=== PATIENT | male | born 1950 | race African-American/Black ===

== ENCOUNTER 2017-06-24 12:25 | Inpatient (IN) | payer MEDICARE, BC ==
[2017-06-24] VITALS (8 sets, daily range): BP systolic 168–195; BP diastolic 70–92; BMI 23.9; BMI 23.3
--- NOTE | ~2017-06-24 | HEMODYNAMI ---
PATIENT:SRIDHAR CONN MEDICAL RECORD: [id number] : 50 LOCATION:[facility] ADMISSION DATE: 06/24/17 Generatedon:06/24/201717:08 Patient name: SRIDHAR CONN Patient #: [id number] SSN: : Date of study: 06/24/2017 Page: Of Hemodynamic Procedure Report Patient Data Patient Demographics Procedure consent was obtained First Name: SRIDHAR Gender: Male Last Name: JANUARY : 1950 Middle Initial: RAYMON Age: 66 year(s) Patient #: [id number] Race: Black Additional ID: [id number] Contact details [address]: [address] [place], [place] [address] State: [place] City: [place] Zip code: [address] Admission Admission Data Admission Date: 06/24/2017 Admission Time: 12:25 Weight (lbs.): 176 Weight (kg.): 79.83 Procedure Procedure Types Cath Procedure Peripheral Cath Diagnostic Procedure Cath Peripheral 4-Vessel Subclavian Arteriogram Uni Procedure Description Procedure Date Procedure Date: 06/24/2017 Procedure Start Time: 16:09 Procedure Staff Name Function Julian Hicks MD Performing Physician Farzana Maciel RT Scrub Jessica Cooper RN Nurse Misha Suarez RT Machine Wiper Misha Suarez RT Monitor Procedure Data Cath Procedure Fluoroscopy Diagnostic fluoroscopy Total fluoroscopy Time: time: 13.1 min 13.1 min Diagnostic fluoroscopy Total fluoroscopy dose: 97 dose: 97 mGy mGy Contrast Material Contrast Material Type Amount (ml) Isovue 300 158 Entry Location Entry Primary Successful Side Size Upsize Upsize Entry Closure Succes sful Closure Location (Fr) 1 (Fr) 2 (Fr) Remarks Device Remarks Femoral Right 5 Fr Exoseal artery Diagnostic catheters Device Type Used For End Catheter Placement Merit ULTRA BOLUS FLUSH Cervicocerebral 5Fr 90CM catheter (arch) aortogram Cook HN5 5F/100CM catheter Procedure Medications Medication Administration Route Dosage Versed I.V. 1 mg Fentanyl I.V. 50 mcg Versed I.V. 1 mg Fentanyl I.V. 50 mcg Versed I.V. 1 mg Fentanyl I.V. 50 mcg Versed I.V. 1 mg Fentanyl I.V. 50 mcg Heparin Flush Bag added to field 23 bags (1000units/500ml NS) unlisted medication added to field 20 Hemodynamics Rest Heart Rate: 68 (bpm) Snapshots Pre Cath Intra NCS Post Cath Vital Signs Time Heart Resp SPO2 etCO2 NIBP (mmHg) Rhythm Pain Sedation Rate (ipm) (%) (mmHg) Status Level (bpm) 15:58:04 65 16 97 30.1 151/74(128) NSR 0 (11) 10(A) , No pain 16:02:24 66 16 96 33.1 148/79(127) NSR 0 (11) 10(A) , No pain 16:06:44 67 18 98 31.6 156/77(139) NSR 0 (11) 10(A) , No pain 16:11:02 70 15 98 34.6 165/87(139) NSR 0 (11) 10(A) , No pain 16:15:26 68 15 96 34.6 152/77(127) NSR 0 (11) 10(A) , No pain 16:19:49 64 64 95 0 162/72(142) NSR 0 (11) 10(A) , No pain 16:24:13 67 11 93 0 164/82(137) NSR 0 (11) 10(A) , No pain 16:28:35 70 12 92 26.3 167/89(140) NSR 0 (11) 10(A) , No pain 16:32:57 63 7 95 36.1 150/75(124) NSR 0 (11) 10(A) , No pain 16:37:20 62 7 95 9.7 130/73(116) NSR 0 (11) 10(A) , No pain 16:41:29 72 10 95 15.8 141/86(117) NSR 0 (11) 10(A) , No pain 16:45:41 68 13 97 30.8 148/91(104) NSR 0 (11) 10(A) , No pain 16:49:55 66 18 96 43.7 137/80(122) NSR 0 (11) 10(A) , No pain 16:54:11 64 10 96 0 154/76(125) NSR 0 (11) 10(A) , No pain 16:58:31 62 7 95 0 156/76(134) NSR 0 (11) 10(A) , No pain 17:02:51 61 10 97 39.9 161/80(130) NSR 0 (11) 10(A) , No pain 17:07:16 61 13 98 34.6 159/82(146) NSR 0 (11) 10(A) , No pain Medications Time Medication Route Dose Verified Delivered Reason Notes Eff ectiveness by by 15:28:22 Heparin Flush added 23bags Julian Jordan used for Bag to Fabiola Hicks MD procedure (1000units/500ml field MOONEY NS) 15:29:45 lidocaine added 20ml Julian Jordan for local to vial Fabiola Hicks MD anesthetic field 16:09:45 Versed I.V. 1 mg Julian Lopez for Kenneth Hicks RN sedation 16:09:57 Fentanyl I.V. 50 mcg Julian Lopez for Kenneth Hicks RN sedation 16:17:41 Versed I.V. 1 mg Julian Jessica for Kenneth Hicks RN sedation 16:18:03 Fentanyl I.V. 50 mcg Julian Jessica for Kenneth Hicks RN sedation 16:23:40 Versed I.V. 1 mg Julian Jessica for Kenneth Hicks RN sedation 16:23:49 Fentanyl I.V. 50 mcg Julian Jessica for Kenneth Hicks RN sedation 16:26:28 Versed I.V. 1 mg Julian Jessica for Kenneth Hicks RN sedation 16:26:41 Fentanyl I.V. 50 mcg Julian Jessica for Kenneth Hicks RN sedation Procedure Log Time Note 15:06:30 Patient Weight : 176 lbs 15:28:22 Heparin Flush Bag (1000units/500ml NS) 3bags added to field was administered by Julian Hicks MD; used for procedure; 15:29:23 Misha Suarez RT (R) (CV) sent for patient. Start room use. 15:29:37 Time tracking: Regular hours 15:29:43 Plan of Care:Hemodynamics will remain stable., Cardiac rhythm will remain stable., Comfort level will be maintained., Respiratory function will remain adequate., Patient/ family verbilizes understanding of procedure., Procedure tolerated without complication., Recovers from procedure without complications.. 15:29:45 lidocaine 20ml vial added to field was administered by Julian Hicks MD; for local anesthetic; 15:29:48 Patient received from Outpatients to IR Alert and oriented. Tansferred to table in Supine position. 15:29:49 Correct patient and procedure confirmed by team. 15:29:57 Signed procedure consent form obtained from patient. 15:29:58 Full Disclosure recording started 15:29:59 - 15:30:02 Use device set IR Diagnostic 15:30:04 Acist Hand Control opened to sterile field. 15:30:05 Acist Syringe opened to sterile field. 15:30:05 Acist Manifold opened to sterile field. 15:30:06 Bag Decanter opened to sterile field. 15:30:06 Sterile Angiographic Pack opened to sterile field. 15:30:19 H&P Date Dictated: 06/24/2017 H&P Addendum completed by physician on da y of procedure. (MUST COMPLETE FOR ALL OUTPATIENTS). 15:30:20 Pre-procedure instructions explained to patient. 15:30:20 Pre-op teaching completed and patient verbalized understanding. 15:30:22 Family unavailable. 15:30:25 Patient NPO since Midnight. 15:30:27 Is the patient allergic to Iodine/contrast media? No. 15:30:28 Is patient on blood thinner?No 15:30:29 Patient diabetic? No. 15:30:31 - 15:30:32 - 15:30:33 ----Pre-sedation anethsthesia assessment.---- 15:30:38 Previous problem with sedation/anesthesia? No ? 15:30:39 Snore? Yes 15:30:41 Sleep apnea? No 15:30:42 Deviated septum? No 15:30:47 Opens mouth fully? Yes 15:30:49 Sticks out tongue? Yes 15:30:51 Airway obstruction? No ? 15:30:55 Dentures? No ? 15:31:05 Patient pain scale 0/10 no pain. 15:54:51 IV patent on arrival in right hand with 0.9% NaCl at [facility]. 15:54:53 Alarms reviewed by RDeb N. 15:54:53 Sharps counted by scrub and verified by R.N. 15:54:57 Right groin area was prepped with chlora-prep and draped in sterile fashion 15:55:03 Left Arm area was prepped with chlora-prep and draped in sterile fashio n 15:56:45 ECG and BP/O2 sat monitors applied to patient. 15:56:46 Vital chart was started 15:56:47 Baseline sample Acquired. 16:05:13 Physician arrived 16:05:13 --------ALL STOP TIME OUT------ 16:05:14 Final Timeout: patient, procedure, and site verified with staff and physician. All members of the team are in agreement. 16:05:18 Right groin site verified by team. 16:05:21 Left Arm site verified by team. 16:05:41 Sedation plan: IV Moderate Sedation Versed, Fentanyl 16:09:45 Versed 1 mg I.V. was administered by Jessica Cooper RN; for sedation; 16:09:51 Procedure started. 16:09:56 Local anesthetic to right femoral artery with Lidocaine 1% by Julian Hicks MD.INITIAL ACCESS ONLY 16:09:57 Fentanyl 50 mcg I.V. was administered by Jessica Copoer RN; for sedation ; 16:12:50 TUBING, CONTRAST INJCTN HI PRES opened to sterile field. 16:12:50 Micropuncture VSI 4FR kit opened to sterile field. 16:12:51 Terumo 5Fr Curlew Sheath opened to sterile field. 16:12:51 TUBING, CONTRAST INJCTN HI PRES opened to sterile field. 16:12:51 Cook DOC .035 guide wire opened to sterile field. 16:13:09 A Spiceworks ULTRA BOLUS FLUSH 5Fr 90CM catheter was advanced over the wire and used for Cervicocerebral (arch) aortogram. 16:13:19 A 5 Fr sheath was inserted into the Right Femoral artery 16:17:41 Versed 1 mg I.V. was administered by Jessica Cooper RN; for sedation; 16:18:01 Terumo 5FR ANGLED 65CM glide catheter opened to sterile field. 16:18:03 Fentanyl 50 mcg I.V. was administered by Jessica Cooper RN; for sedation ; 16:18:11 Cook CISNEROS 260 guide wire opened to sterile field. 16:18:34 Terumo ANGLE 260cm glide wire opened to sterile field. 16:23:40 Versed 1 mg I.V. was administered by Jessica Cooper RN; for sedation; 16:23:49 Fentanyl 50 mcg I.V. was administered by Jessica Cooper RN; for sedation ; 16:25:42 Terumo 5FR ANGLED 100CM glide catheter opened to sterile field. 16:26:28 Versed 1 mg I.V. was administered by Jessica Cooper RN; for sedation; 16:26:41 Fentanyl 50 mcg I.V. was administered by Jessica Cooper RN; for sedation ; 16:30:38 A Cook HN5 5F/100CM catheter was advanced over the wire and used for . 16:34:48 Terumo TORQUE DEVICE PLASTIC .038 opened to sterile field. 16:37:24 Terumo 5FR COBRA 100CM glide catheter opened to sterile field. 16:41:10 Terumo 5FR LIVE 2 100CM glide catheter opened to sterile field. 17:03:06 Cordis 5Fr Exoseal opened to sterile field. 17:03:27 Sheath removed intact; hemostasis achieved with Exoseal to the Right Femoral artery. 17:03:30 Procedure ended.(Physican Out) 17:06:02 Fluoroscopy time 13.10 minutes. 17:06:09 Fluoroscopy dose: 97 mGy 17:06:09 Flurop Dose total: 97 17:06:13 Contrast amount:Isovue 300 158ml. 17:06:19 Sharps counted by scrub and verified by R.N. 17:06:21 Insertion/operative site no bleeding no hematoma. 17:06:24 Post-op/insertion site Right Femoral artery dressed using a 4 x 4 and Tegaderm. 17:06:31 Post right femoral artery:stable 17:06:42 Post Procedure Pulses reassessed and unchanged 17:07:20 Post procedure instruction explained to patient.Patient verbalizes understanding. 17:07:22 Procedure and supply charges have been captured, reviewed, submitted an d are correct. 17:08:27 Report given to Med II. 17:08:31 Patient transfered to Med II with Bed. 17:08:55 Vital chart was stopped Device Usage Item Name Manufacture Quantity Catalog Number Hospital Part Current Min imal Lot# / Charge Number Stock Stock Serial# Code Acist Hand Acist 1 65710 976365 490587 [id number] 5 Control Medical Systems Inc Acist Syringe Acist 1 46194 167747 791932 468156 20 Medical Systems Inc Acist Acist 1 97481 482137 288762 578654 5 Manifold Medical Systems Inc Bag Decanter Microtek 1 2002S 864365 25594 145585 5 Medical Inc. Sterile Cardinal 1 [id number] 971642 836354 5 Angiographic Health Pack TUBING, Merit 2 [id number] 442038 897524 684594 5 CONTRAST Medical INJCTN HI PRES Micropuncture VSI VASCULAR 1 7266V 729315 394902 5 VSI 4FR kit SOLUTIONS Terumo 5Fr Terumo 1 WGW609 967641 434259 535854 40 Curlew Sheath Cook DOC .035 Cook Medical 1 D83459 399278 580510 5 8797293 guide wire Merit ULTRA Merit 1 [id number] 053167 173833 5 BOLUS FLUSH Medical 5Fr 90CM catheter Terumo 5FR Terumo 1 CG507 620851 210352 5 ANGLED 65CM glide catheter [facility] Medical 1 L70727 828469 216340 5 260 guide wire Terumo ANGLE Terumo 1 IV9475 287634 850833 291433 5 260cm glide wire Terumo 5FR Terumo 1 CG508 652323 28438 393801 4 ANGLED 100CM glide catheter Cook HN5 Cook Medical 1 X41987 708208 447604 2 5F/100CM catheter Terumo TORQUE Centre 1 TD01 305991 273986 527307 5 DEVICE Scientific PLASTIC .038 Terumo 5FR Terumo 1 CG503 065549 184970 5 COBRA 100CM glide catheter Terumo 5FR Terumo 1 CG511 330564 962869 5 LIVE 2 100CM glide catheter Cordis 5Fr Cardinal 1 EX500 649054 606238 697714 10 [id number] [facility] Signature Audit Lar[place] Stage Time Signature Unsigned Intra-Procedure 06/24/2017 Misha 5:08:53 PM Erick RT (R) (CV) Signatures Monitor : Misha Signature : Erick RT Date : Time : [facility] [address] [facility] [place] [address]
[2017-06-24] MEDS ORDERED: CATAPRES0.3 MG PO (13:42)
[2017-06-24] MEDS ORDERED: NEPHRO-VITE RX1 TAB PO (13:43)
[2017-06-24] MEDS ORDERED: HYDROCODONE-APA1 TAB PO (13:44)
[2017-06-24 13:57] LABS: BASOPHILS 0.6 % (0-2); HEMATOCRIT 35.8 % (42.0-54.0); HEMOGLOBIN 12.1 g/dL (13.5-17.5); IMMATURE GRANULOCYTES 0.2 % (0-5); LYMPHOCYTES 25.8 % (15-50); MCH 27.4 pg (26.0-34.0); MCHC 33.8 g/dL (31.0-37.0); MCV 81.2 fL (80.0-100.0); MEAN PLATELET VOLUME 10.7 fL (7.4-10.4); MONOCYTES 13.7 % (2-11); NEUTROPHILS 56.7 % (40-80); PLATELET COUNT 191 10x3/uL (130-400); RBC 4.41 10x6/uL (4.20-6.10); RDW 16.5 % (11.5-14.5); WBC 4.7 10x3/uL (4.8-10.8)
[2017-06-24 14:24] LABS: APTT 32.5 SECONDS (22.8-39.4); INR 0.97 (0.85-1.17); PROTIME 12.7 SECONDS (11.6-15.0)
[2017-06-24 14:28] LABS: ANION GAP 14.7 mmol/L (8-16); CALCIUM 10.1 mg/dL (8.5-10.1); CARBON DIOXIDE 27.8 mmol/L (21.0-32.0); CREATININE - SERUM 7.5 mg/dL (0.6-1.3); POTASSIUM - SERUM 4.5 mmol/L (3.5-5.1)
--- NOTE | 2017-06-24 17:28 | NUR ---
PT TO ROOM VS ARE STABLE. R PIV IV NOTED AND PATENT. LEFT FA FISTULA BRUIT AND THRILL PRESENT. R LEG ARTERIOGRAM WAS DONE PULSES WITH DOPPLER PRESENT. R GROIN DSNG IS CDI. PT LAYING FLAT ALERT AND ORIENTED WILL ADMIT
--- NOTE | 2017-06-24 17:52 | NUR ---
PT BP IS HIGH 184/84 PT HAS HOME MED CLONIDINE. PAGED LIAM WITH RENAL TO GET HOME MEDS RESTARTED
--- NOTE | 2017-06-24 18:42 | NUR ---
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 FOR BP MEDS. BP TRENDING DOWN 175/68
--- NOTE | 2017-06-24 18:56 | NUR ---
PT STILL LAYING FLAT R GROIN SITE STILL WNL. BP STILL TRENDING DOWN. PAGING RENAL AGAIN
[2017-06-25] VITALS (8 sets, daily range): BP systolic 157–191; BP diastolic 81–91; BMI 23.3
--- NOTE | 2017-06-25 01:24 | NUR ---
PT BP IS 185/94 AT THIS TIME. RENAL MD PAGED THREE TIMES BY DAYSHIFT NURSE. STILL NO REPLY INSTRUCTED PT TO TAKE HIS CLONIDINE HE BROUGHT FROM HOME.
--- NOTE | 2017-06-25 02:18 | NUR ---
LYING IN BED, CALL LIGHT IN REACH. WILL CONTINUE WITH PLAN OF CARE.
--- NOTE | 2017-06-25 07:38 | NUR ---
PT LAYING FLAT IN BED DENIES NEEDS. STILL NO ORDERS FOR SURGERY. CALLED SURGERY SPOKE WITH VERONICA IN SURGERY. SHE SAID THAT PT WAS ON THE SCHEDULE FOR 2:[address] GUAN GOT HERE THAT THEY WOULD ASK HIM TO PUT IN ORDERS.
--- NOTE | 2017-06-25 12:25 | NUR ---
SUSAN BUTTS CAME UP TO FLOOR AND SAID TO PREOP PT FOR SURGERY. THIS AUTHOR WAS IN ANOTHER PT ROOM. I WAS TOLD BY THIS SURGERY TO "HURRY UP, THEY WERE READY FOR PT IN SURGERY". TOLD THIS TECH THAT I WAS NOT CALLED TO PREOP.. AND THAT I CALLED THIS AM FOR ORDERS BECAUSE I HAVE NONE AND THAT I WAS TOLD THEY WOULD ASK DR GUAN WHEN HE ARRIVED TO PUT IN ORDERS AND THAT PT WOULD NOT BE GOING TO SURGERY UNTIL 1430. THIS TECH CALLED ANOTHER PERSON FROM SURGERY WHO CAME UP TO THE FLOOR AND HANDED ME A WRITTEN ORDER FROM DR GUAN THAT WAS SUPPOSED TO BE SENT UP WITH PT APPARENTLY. HE SAID THAT THEY RECEIVED THE ORDERS FAXED TO SURGERY, BUT THEY WERE NOT PUT IN. PUT ORDERS IN, CONSENT OBTAINED. ANESTHESIA PUT IN PREOP ORDERS, PREOPED PT AND COMPLETED PREOP CHECKLIST.
--- NOTE | 2017-06-25 14:09 | NUR ---
PT STILL IN SURGERY
[2017-06-25] MEDS ORDERED: PLAVIX75 MG PO (14:10)
--- NOTE | 2017-06-25 15:17 | NUR ---
PT SITTING UP IN BED WATCHING TV WAITING ON HIS DAUGHTER TO GET HERE. DENIES NEEDS VS ARE STILL WNL
--- NOTE | 2017-06-25 15:46 | NUR ---
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 CM met with patient & daughter, Ivelisse Patten, @ bedside. Patient lives in [place] & goes to in [place] on @ 0530. He states he has everything he needs for discharge. He stated his vehicle is here at the hospital and planned to drive himself home. Explained to him he can not drive due to the medications he rec'd for his procedure this afternoon. Both verbalize understanding. States she will drive him home this evening. Field Consultant: Keri Mosqueda
--- NOTE | 2017-06-25 17:21 | NUR ---
PT LIVES [address] HOURS AWAY. PT IS COMPLETELY ALERT AND ORIENTED VS ARE WNL. CURRENT VS ARE 148/64. 100% RA 64 BPM. RR 16. DAUGHTER HERE TO DRIVE HIM HOME. LA FOREIGN CORRESPONDENT SAID OK FOR PT TO DC HOME. WENT OVER DC PAPERWORK WITH PT PT VERBALIZES UNDERSTANDING, DC PIV WITH CATH TIP INTACT. ALL INCISION SITES AND DSNGS ARE CDI AND WNL. PT GETTING DRESSED AND WILL NOTIFY STAFF WHEN READY TO GO
--- NOTE | 2017-06-25 17:40 | NUR ---
WHEELED PT OUT TO FRONT ENTRANCE DAUGHTER DROVE HOME
--- NOTE | 2017-06-29 15:51 | OP ---
PATIENT NAME: SRIDHAR CONN MEDICAL RECORD: [id number] :50 LOCATION:D.M2 D.2101 ADMISSION DATE:06/24/17 SURGEON: CINDY GUAN MD DATE OF OPERATION: 06/25/2017 REFERRED BY: Tyrone Yeung MD PREOPERATIVE DIAGNOSES: End-stage renal disease and dependence on hemodialysis, ischemic steal syndrome left upper extremity due to combination of peripheral arterial atherosclerotic disease and excessive diversion of arterial flow by a right radiocephalic AV fistula. POSTOPERATIVE DIAGNOSES: End-stage renal disease and dependence on hemodialysis, ischemic steal syndrome left upper extremity due to combination of peripheral arterial atherosclerotic disease and excessive diversion of arterial flow by a right radiocephalic AV fistula. OPERATION PERFORMED: Fistulogram and open MANCINI banding of left upper extremity AV fistula. SURGEON: Cindy Guan MD ANESTHESIA: General with LMA per GROUP SALES MANAGER. PREOPERATIVE NOTE: Mr. Conn is a very nice 66-year-old -Japanese male with end-stage renal disease, on dialysis via a large left radiocephalic AV fistula. He has ischemic pain in the hand and has been shown on arteriograms to have a very small ulnar artery supplying the hand, very very small interosseous vessels, and a large radial artery, which appears to have been ligated just distal to the arterial anastomosis, which perhaps would have been done at the time of creation even of this fistula. He is brought to the operating room to try to salvage the situation with a flow restricting band on the fistula. DESCRIPTION OF PROCEDURE: With the patient under general anesthesia in supine position, he was prepped and draped in sterile manner. I accessed the fistula with micropuncture technique directed distally and inserted a 6-[place] introducer. I made an oblique incision right along the juxta-anastomotic segment of the fistula dissecting it from the surrounding subcutaneous tissues and encircled it with a 2-0 Prolene ligature. I inserted a 4-mm diameter angioplasty balloon over a 0.035 angled Glidewire and positioned the balloon up against the arterial anastomosis, inflated it and then tied the 2-0 Prolene suture down snugly on the fistula over the 4-mm balloon to achieve a fairly precise intraluminal diameter at that point. The balloon and wire were removed and contrast was injected via the 6-[place] port with proximal occlusion of the fistula. This demonstrated a good result. The 6-[place] sheath was removed and hemostasis obtained at that point with a period of direct pressure and a pobeba-fs-vyzow 4-0 Prolene suture. The larger incision at the wrist was closed with interrupted inverted 3-0 Vicryl, infiltrated with 0.25% Marcaine, and skin closed with interrupted simple 4-0 Monocryl sutures. The puncture site was dressed with Avitene Ultrafoam and the primary incision was dressed with Maxorb AG and both sites were covered with Tegaderm using Cavilon skin prep. The patient was awakened and taken to the recovery room with a loud bruit and thrill over the fistula. PLAN: I believe the patient can go home today. He can continue his usual OPERATIVE REPORT [id number] SRIDHAR CONN dialysis schedule with his left arm fistula. I will plan to see him back in my office next week, I will need to remove the Monocryl sutures from his wrist incision at that time. I will start him on Plavix beginning tomorrow and I am electronically a prescription for Plavix 75 mg once daily to his pharmacy and will notify nephrology and get their okay for the Plavix initiation. Hopefully, this operation and perhaps along with the Plavix may sufficiently improve flow into the hand to alleviate his pain and help avoid any tissue loss or need for fistula ligation. There was no blood loss during the procedure. All sponges, instruments, and needles were accounted for. No drain was used and no surgical specimen was submitted for histopathology. TRANSINT:[id number] Voice Confirmation ID: [id number] DOCUMENT ID: [id number] CINDY GUAN MD at 1553 CC: TYRONE YEUNG MD [id number] DICTATION DATE: 06/25/178 COMBINATION SAW OPERATOR: 06/25/17 1523 DIS IN 06/25/17 [facility] [address] [place] [address]
== END 2017-06-25 17:41 | disposition home or self-care (01) | DRG 252 ==
LOC: D.OPS 12:25 → D.RAD 14:00 → D.OPS 14:00 → D.M2 17:40 → D.OPS 17:43 → D.M2 06-25 17:41
PROVIDERS: General Practice; Surgery; ADMIT Internal Medicine Nephrology
PROC: B3121ZZ Fluoroscopy of Left Subclavian Artery using Low Osmolar Contrast (ICD-10-PCS; principal; 2017-06-24 14:00)
PROC: B51W1ZZ Fluoroscopy of Dialysis Shunt/Fistula using Low Osmolar Contrast (ICD-10-PCS; 2017-06-25)
PROC: 03V Upper Arteries, Restriction (ICD-10-PCS; 2017-06-25 14:30)
DX: T82.898A Other specified complication of vascular prosthetic devices, implants and grafts, initial encounter (principal); N18.6 End stage renal disease; I12.0 Hypertensive chronic kidney disease with stage 5 chronic kidney disease or end stage renal disease; Y83.8 Other surgical procedures as the cause of abnormal reaction of the patient, or of later complication, without mention of misadventure at the time of the procedure; Z99.2 Dependence on renal dialysis

== ENCOUNTER 2018-10-31 19:40 | Inpatient (IN) | payer MEDICARE, BC ==
[~2018-10-31] VITALS: Ht 182.9 cm; Wt 72.8 kg
--- NOTE | ~2018-10-31 | EC ---
PATIENT:SRIDHAR CONN DATE OF SERVICE: 10/31/18 SEX: M MEDICAL RECORD: [id number] DATE OF : [birth year] LOCATION:D.M2 D.210 AGE OF PATIENT: 68 ADMISSION DATE: 10/31/18 REFERRING PHYSICIAN: INTERPRETING PHYSICIAN: KAROLINE DUMONT MD ECHOCARDIOGRAM REPORT ECHO CHARGES 4 ECHO COMPLETE Date: 11/02/18 CLINICAL DIAGNOSIS: SOB ECHOCARDIOGRAPHIC MEASUREMENTS (adult normal given) AC root (d.<3.7cm) 3.7 cm LV Septum d (<1.2 cm> 1.0 cm Valve Excursion 1.2 cm LV Septum (systole) 1.6 cm Left Atria (s.<4.0cm> 5.0 cm LVPW d(<1.2cm) 1.4 cm RV (d.<2.3cm) 2.5 cm LVPW (sytole) 1.8 cm LV diastole(<5.6CM) 7.4 cm MV E-F(>70mm/sec) cm LV systole 5.2 cm LVOT Diameter 2.1 cm MV exc.(>10mm) cm Est.ejection fraction (50-75%) % DOPPLER: LVIT cm/sec A 74.0 cm/sec E 59.0 cm/sec LA cm/sec RVSP 35.2 mmHg LVOT 104 cm/sec AOP1/2T 463.0m/s Asc. Ao 242 cm/sec RVOT 57.0 cm/sec RA cm/sec PA 83.0 cm/sec AV Gradient Peak 24.0 mmHg AV Mean 11.1 mmHg AV Area 1.4 cm MV Gradient Peak 3.3 mmHg MV Mean 1.2 mmHg MV Area cm COMMENTS: Lumber Handler: 1 KEENAN DOOLEYOE Dsp Engineer: 3 Dr. Robb TAPE# PACS Pericardial Effusion N DATE OF SERVICE: Borderline LVH. LV internal dimension is normal. Wall motion is normal. EF is greater than or equal to 55%. Aortic valve is sclerotic. There is no evidence of stenosis on Doppler interrogation. Left atrium dilated at 5.0 cm. Mitral valve shows no prolapse. Mitral annular calcifications are present. Jwvg-gv-kjlljsvo MR. Right-sided chamber is grossly normal. Mild TR. TRANSINT:[id number] Voice Confirmation ID: [id number] DOCUMENT ID: [id number] ECHOCARDIOGRAM REPORT [id number] SRIDHAR CONN GREGORY A MD CC: [id number] DICTATION DATE: 11/02/18 1302 MARKETING INTELLIGENCE ANALYST: 11/02/182121 ADM IN [place] [id number] [place] [id number]
--- NOTE | ~2018-10-31 | OP ---
PATIENT NAME: SRIDHAR CONN MEDICAL RECORD: [id number] :50 LOCATION:D.M2 D.2109 ADMISSION DATE:10/31/18 SURGEON: KAROLINE DUMONT MD DATE OF OPERATION: 11/02/2018 PROCEDURES: Left heart catheterization, selective coronary angiography, and right femoral artery approach. CATHETERS: A 5-Welsh sheath, 5/4 left and right Luis, 5/4 pig. The procedure was well tolerated. The patient returned to minaya, sheath removed and a FemoStop was placed. FINDINGS: Left ventriculography in 30-degree EDMOND view, mild global hypo with EF lower limits of normal at least 45% to 50%. CORONARY ANATOMY: LEFT MAIN: Left main is free of disease. LAD: Marked luminal irregularities with calcium but no flow obstructive disease. CIRCUMFLEX: Codominant system. Circumflex again marked calcium deposition with no flow obstructive stenosis. RIGHT CORONARY ARTERY: Shows 2 sequential 80% stenosis. DESCRIPTION OF PROCEDURE: A 5-Welsh sheath was exchanged to 6-Welsh sheath AR2 guiding catheter provided good guide catheter support; however, unable to cross the lesion in the right coronary. With a Whisper wire, the initial lesion was addressed with a 3.0 x 15 [place] balloon up to 14 atmospheres, still 20% residual; however, due to severe calcium deposition, unable to place a stent despite varun wire and downsizing balloons. Plavix for 1 month. TRANSINT:[id number] Voice Confirmation ID: [id number] DOCUMENT ID: [id number] KAROLINE DUMONT MD CC: [id number] DICTATION DATE: 11/02/18 1502 BLANKER OPERATOR: 11/02/18 2210 ADM IN [facility] [address] [place] [address]
--- NOTE | ~2018-10-31 | HEMODYNAMI ---
PATIENT:SRIDHAR CONN MEDICAL RECORD: [id number] : 50 LOCATION:D. D.2109 ADMISSION DATE: 10/31/18 Generatedon:11/02/201814:59 Patient name: SRIDHAR CONN Patient #: [id number] SSN: : Date of study: 11/02/2018 Page: Of Hemodynamic Procedure Report Patient Data Patient Demographics Procedure consent was obtained First Name: SRIDHAR Gender: Male Last Name: JANUARY : 1950 [facility] Initial: RAYMON Age: 68 year(s) Patient #: [id number] Race: Black Additional ID: [id number] Contact details Address: [address] [place] [address] [address] State: [place] City: [place] Zip code: [address] Admission Admission Data Admission Date: 10/31/2018 Admission Time: 19:40 Room #: D.2109 Procedure Procedure Types Cath Procedure Diagnostic Procedure LHC LH w/Coronaries Sedation Charges Moderate Sedation up to 15 minutes Moderate Sedation up to 30 minutes PCI Procedure PTCA PTCA Initial Procedure Description Procedure Date Procedure Date: 11/02/2018 Procedure Start Time: 14:20 Procedure End Time: 14:55 Procedure Staff Name Function Jeison Josue MD Performing Physician Ward Acosta RT Monitor Mary Littlejohn RN Nurse Jolene Peñaloza RT Scrub Marga Lawrence RT Monitor Procedure Data Cath Procedure Fluoroscopy Diagnostic fluoroscopy Total fluoroscopy Time: 0 time: 0 min min Diagnostic fluoroscopy Total fluoroscopy dose: dose: 61.1 mGy 61.1 mGy Contrast Material Contrast Material Type Amount (ml) Isovue 300 141 Entry Location Entry Primary Successful Side Size Upsize Upsize Entry Closure Succes sful Closure Location (Fr) 1 (Fr) 2 (Fr) Remarks Device Remarks Femoral Right 5 Fr 6 Fr Exoseal artery Short Estimated blood loss: 10 ml Diagnostic catheters Device Type Used For End Catheter Placement MULTIPACK JL 4.0 5Fr Procedure catheter MULTIPACK 3DRC 5Fr Procedure catheter DIAGNOSTIC AR MOD 5Fr Procedure Catheter ([id number]) MULTIPACK Pigtail 5 Fr Ventriculography catheter Procedure Complications No complications Procedure Medications Medication Administration Route Dosage Oxygen etCO2 Nasal cannula 2 l/min Lidocaine 2% added to field 20 Heparin Flush Bag added to field 2 bags (1000units/500ml NS) 0.9% NaCl I.V. Versed I.V. 1 mg Fentanyl I.V. 50 mcg Heparin Bolus I.V. 4000 units Integrilin (Bolus I.V. 6.2 ml 2mg/ml) Versed I.V. 1 mg Fentanyl I.V. 50 mcg Plavix P.O. 600 mg Hemodynamics Rest Heart Rate: 68 (bpm) Pressure Samples Time Site Value (mmHg) Purpose Heart Use Rate(bpm) 14:31 LV 152/0,30 EDP 67 Gradients Valve Time Site Site Mean SEP/DFP Peak To Heart Use 1 2 (mmHg) (sec/min) Peak Rate (mmHg) (bpm) Aortic 14:32 LV AO 64 Snapshots Pre Cath Intra NCS Post Cath Vital Signs Time Heart Resp SPO2 etCO2 NIBP (mmHg) Rhythm Pain Sedation Rate (ipm) (%) (mmHg) Status Level (bpm) 14:13:49 65 16 97 23.2 151/76(132) NSR 0 (11) 10(A) , No pain 14:18:09 64 23 94 26.2 144/73(117) NSR 0 (11) 10(A) , No pain 14:22:29 65 18 97 0 145/70(119) NSR 0 (11) 9(A) , No pain 14:26:49 62 34 98 146/69(121) NSR 0 (11) 9(A) , No pain 14:31:03 78 29 94 0 137/88(123) NSR 0 (11) 9(A) , No pain 14:35:21 63 24 97 0 136/70(114) NSR 0 (11) 9(A) , No pain 14:39:37 64 26 93 0 130/74(107) NSR 0 (11) 9(A) , No pain 14:43:53 63 59 98 0 139/64(115) NSR 0 (11) 9(A) , No pain 14:48:09 67 31 92 19.4 130/73(107) NSR 0 (11) 10(A) , No pain 14:52:25 68 13 94 21.7 107/62(84) NSR 0 (11) 10(A) , No pain Medications Time Medication Route Dose Verified Delivered Reason Notes Effectiveness by by 14:15:14 Oxygen etCO2 2 Jeison Hernandez used for Nasal l/min [facility] Julian Littlejohn RN procedure cannula 14:15:20 Lidocaine 2% added 20ml Jeison Mchugh for local to vial [facility] anesthetic field MD MOONEY 14:15:26 Heparin Flush added 2 Jeison Mchugh used for Bag to bags [facility] procedure (1000units/500ml field MD MOONEY NS) 14:15:36 0.9% NaCl I.V. kvo Jeison Hernandez Per physician ml/hr [facility] Julian Littlejohn RN, MD 14:18:44 Versed I.V. 1 mg Jeison Hernandez for sedation [facility] Julian Littlejohn RN, MD 14:18:51 Fentanyl I.V. 50 Jeison Hernandez for sedation mcg [facility] Julian Littlejohn RN, MD 14:34:19 Heparin Bolus I.V. 4000 Jeison Hernandez for verif ied units [facility] Julian Littlejohn RN anticoagulation with dr MD lutz 14:36:13 Integrilin I.V. 6.2 Jeison Hernandez for Waste d (Bolus 2mg/ml) ml [facility] Julian Littlejohn RN antiplatelet 3.8 ml therapy of vial 14:49:03 Versed I.V. 1 mg Jeison Hernandez for sedation [facility] Julian Littlejohn RN, MD 14:49:07 Fentanyl I.V. 50 Jeison Hernandez for sedation mcg [facility] Julian Littlejohn RN, MD 14:53:46 Plavix P.O. 600 Jeison Hernandez for mg [facility] Julian Littlejohn RN antiplatelet therapy Procedure Log Time Note 14:00:43 Ward Acosta RT(R) sent for patient. Start room use. 14:08:48 Time tracking: Regular hours (M-F 7:00 - 5:00) 14:08:52 Plan of Care:Hemodynamics will remain stable., Cardiac rhythm will remain stable., Comfort level will be maintained., Respiratory function will remain adequate., Patient/ family verbilizes understanding of procedure., Procedure tolerated without complication., Recovers from procedure without complications.. 14:08:57 Patient received from PCU to CCL 1 Alert and oriented. Tansferred to table in Supine position. 14:08:58 Warm blankets applied, and jorge hugger turned on for patient comfort. 14:08:58 Correct patient and procedure confirmed by team. 14:09:00 Signed procedure consent form obtained from patient. 14:09:00 ECG and BP/O2 sat monitors applied to patient. 14:09:01 Full Disclosure recording started 14:12:33 Vital chart was started 14:12:34 Baseline sample Acquired. 14:12:38 Rhythm: sinus rhythm 14:15:14 Oxygen 2 l/min etCO2 Nasal cannula was administered by Mary Littlejohn RN; used for procedure; 14:15:20 Lidocaine 2% 20ml vial added to field was administered by Jeison Josue MD; for local anesthetic; 14:15:26 Heparin Flush Bag (1000units/500ml NS) 2 bags added to field was administered by Jeison Josue MD; used for procedure; 14:15:36 0.9% NaCl kvo ml/hr I.V. was administered by Mary Littlejohn RN; Per physician; 14:16:08 H&P Date Dictated: 11/02/2018 Within 30 days and on chart.. 14:16:09 Pre-procedure instructions explained to patient. 14:16:10 Pre-op teaching completed and patient verbalized understanding. 14:16:12 Family unavailable. 14:16:14 Patient NPO since Midnight. 14:16:26 Is the patient allergic to Iodine/contrast media? No. 14:16:34 Is patient on blood thinner?Yes 14:16:36 Patient diabetic? No. 14:16:38 ----Pre-sedation anethsthesia assessment.---- 14:16:40 Previous problem with sedation/anesthesia? No ? 14:16:41 Snore? Yes 14:16:42 Sleep apnea? Yes 14:16:44 Deviated septum? No 14:16:53 Opens mouth fully? Yes 14:16:54 Sticks out tongue? Yes 14:17:03 Airway obstruction? No ? 14:17:07 Dentures? No ? 14:17:11 Pre procedure: right dorsailis pedis pulse 1+ Palpable, but thready & weak; easily obliterated 14:17:34 Patient pain scale 0/10 ?. 14:17:42 IV patent on arrival in right wrist with 0.9% NaCl at 10ml/hr. 14:17:45 Lab results completed and on chart. 14:17:50 Right groin area was prepped with chlora-prep and draped in sterile fashion 14:17:50 Alarms reviewed by R. N. 14:17:51 Sharps counted by scrub and verified by R.N. 14:17:51 Physician arrived 14:17:52 --------ALL STOP TIME OUT------ 14:17:52 Final Timeout: patient, procedure, and site verified with staff and physician. All members of the team are in agreement. 14:17:54 Right groin site verified by team. 14:17:57 Fire Safety Assessment: A--An alcohol-based skin anteseptic being used preoperatively., C--Open oxygen or nitrous oxide is being used., D--An ESU, laser, or fiber-optic light is being used. 14:18:01 Physical assessment completed. ASA score P 2 - A patient with mild systemic disease as per Jeison Josue MD. 14:18:05 Sedation plan: IV Moderate Sedation Medication:Versed, Fentanyl 14:18:10 Use device set Femoral Dx 14:18:12 ACIST Syringe (56046) opened to sterile field. 14:18:12 Bag Decanter (2002S) opened to sterile field. 14:18:12 Medline Cath Pack ([id number]) opened to sterile field. 14:18:14 DIAGNOSTIC WIRE .035 260cm J wire (227903) opened to sterile field. 14:18:21 ACIST Hand Control (05273) opened to sterile field. 14:18:22 ACIST Manifold (58436) opened to sterile field. 14:18:22 DIAGNOSTIC Multipack 5Fr catheter set (FK2183) opened to sterile field. 14:18:23 Tegaderm 4 x 4 (1626W) opened to sterile field. 14:18:25 SHEATH 5FR [place] (ABX731) opened to sterile field. 14:18:44 Versed 1 mg I.V. was administered by Mary Littlejohn RN; for sedation; 14:18:51 Fentanyl 50 mcg I.V. was administered by Mary Littlejohn RN; for sedation; 14:20:09 Procedure started. 14:20:12 Local anesthetic to right femoral artery with Lidocaine 2% by Jeison Josue MD.INITIAL ACCESS ONLY 14:20:19 A 5 Fr sheath was inserted into the Right Femoral artery 14:20:24 Zero performed for pressure channel P1 14:24:57 A MULTIPACK JL 4.0 5Fr catheter was advanced over the wire and used for Procedure. 14:25:10 LCA angiography performed. 14:25:16 Catheter removed. 14:25:28 A MULTIPACK 3DRC 5Fr catheter was advanced over the wire and used for Procedure. 14:28:05 Catheter removed. 14:28:49 A DIAGNOSTIC AR MOD 5Fr Catheter ([id number]) was advanced over the wire and used for Procedure. 14:29:19 RCA angiography performed. 14:29:26 Catheter removed. 14:30:30 A MULTIPACK Pigtail 5 Fr catheter was advanced over the wire and used for Ventriculography. 14:30:49 LV gram done using EDMOND 14:32:08 EF : 40 % 14:32:10 LV hemodynamics recorded. 14:32:13 Proceeding to intervention. 14:32:36 Sheath upsized to a 6 Fr Short. 14:33:02 6 Fr AR2 guide catheter was inserted over the wire 14:33:12 Whisper wire advanced. 14:34:14 WHISPER 300cm guide wire ([id number]) opened to sterile field. 14:34:14 INFLATOR Merit BasixCompak (NG4445) opened to sterile field. 14:34:15 SHEATH 6FR [place] (TPQ076) opened to sterile field. 14:34:19 Heparin Bolus 4000 units I.V. was administered by Mary Littlejohn RN; for anticoagulation; verified with dr lutz 14:34:25 GUIDE 6FR AR 2.0 catheter (CO1KU09) opened to sterile field. 14:34:32 Wire advanced across lesion. 14:36:13 Integrilin (Bolus 2mg/ml) 6.2 ml I.V. was administered by Mary Littlejohn RN; for antiplatelet therapy; Wasted 3.8 ml of vial 14:40:04 Inflate balloon Inflation number: 1 A EMERGE OTW 3.0 x 15 balloon ([id number]) was prepped and advanced across the Mid RCA, then inflated to 10 BG for 0:12 (min:sec). 14:41:05 Inflation number: 1 The EMERGE OTW 3.0 x 15 balloon ([id number]) was reinflated across the Prox RCA, to 14 BG for 0:15 (min:sec). 14:46:28 WHISPER 300cm guide wire ([id number]) opened to sterile field. 14:46:54 whisper varun wire 14:49:03 Versed 1 mg I.V. was administered by Mary Littlejohn RN; for sedation; 14:49:07 Fentanyl 50 mcg I.V. was administered by Mary Littlejohn RN; for sedation; 14:50:58 Wire removed. 14:50:58 Guide catheter removed. 14:51:17 EXOSEAL 6Fr (EX600) opened to sterile field. 14:52:28 The EMERGE OTW 1.5 x 15 balloon ([id number]) was advanced and then removed because of failure to cross lesion 14:53:13 Sheath removed intact; hemostasis achieved with Exoseal to the Right Femoral artery. 14:53:17 Procedure ended.(Physican Out) 14:53:35 Fluoroscopy time 00.00 minutes. 14:53:42 Fluoroscopy dose: 61.1 mGy 14:53:42 Flurop Dose total: 61.1 14:53:46 Plavix 600 mg P.O. was administered by Mary Littlejohn RN; for antiplatelet therapy; 14:53:49 Contrast amount:Isovue 300 141ml. 14:53:51 Sharps counted by scrub and verified by R.N. 14:53:52 Insertion/operative site no bleeding no hematoma. 14:53:55 Post-op/insertion site Right Femoral artery dressed using a 4 x 4 and Tegaderm. 14:54:12 Post Procedure Pulses reassessed and unchanged 14:54:22 Post-procedure physical assessment completed. ASA score P 2 - A patient with mild systemic disease as per Jeison Josue MD. 14:54:25 Post procedure rhythm: unchanged. 14:54:29 Estimated blood loss: 10 ml 14:54:32 Post procedure instruction explained to patient.Patient verbalizes understanding. 14:55:01 Procedure type changed to Cath procedure, Diagnostic procedure, LHC, LHC w/Coronaries, Sedation Charges, Moderate Sedation up to 15 minutes, Moderate Sedation up to 30 minutes, PCI procedure, PTCA, PTCA Initial 14:55:03 Procedure and supply charges have been captured, reviewed, submitted and are correct. 14:55:28 Procedure Complication : No complications 14:55:31 Vital chart was stopped 14:55:32 See physician's report for complete and final results. 14:55:34 Report given to Pre/Post Procedure Room. 14:55:39 Patient transfered to Pre/Post Procedure Room with Bed. 14:55:41 Procedure ended. 14:55:41 Full Disclosure recording stopped 14:55:44 End room use (Document Last) 14:56:38 FEMSTOP Gold (M78438) opened to sterile field. 14:57:08 Femstop placed over the right femoral artery at 150 mmHg. Hemostasis achieved. Intervention Summary Intervention Notes Time ActionType Lesion and Equipment Action# Pressure Duration Attributes Used 14:40:04 Inflate Mid RCA EMERGE OTW 1 10 00:12 balloon 3.0 x 15 balloon ([id number]) 14:41:05 Reinflate Prox RCA EMERGE OTW 1 14 00:15 balloon 3.0 x 15 balloon ([id number]) 14:52:28 Discard EMERGE OTW Balloon 1.5 x 15 balloon ([id number]) Device Usage Item Name Manufacture Quantity Catalog Number Hospital Part Current Min imal Lot# / Charge Number Stock Stock Serial# Code ACIST Acist 1 89461 268592 954382 151135 20 Syringe Medical (62517) Systems Inc Bag Decanter Microtek 1 2001S 617003 27055 933657 5 (2001S) Medical Inc. Medline Cath Medline 1 [id number] 716981 67867 733487 5 Pack ([id number]) DIAGNOSTIC [facility] [place] 1 879092 565577 424584 326945 30 WIRE .035 260cm J wire (791997) ACIST Hand Acist 1 69087 582605 072745 671534 5 Control Medical (98851) Systems Inc ACIST Acist 1 88363 713882 122906 192798 5 Manifold Medical (63419) Systems Inc DIAGNOSTIC Cardinal 1 EL6402 428744 24398 272414 30 Multipack Health 5Fr catheter set (FV0988) Tegaderm 4 x 3M 1 1626W 836528 384523 135623 5 4 (1626W) SHEATH 5FR Terumo 1 JQV719 862215 688159 568492 5 [place] (CSO394) MULTIPACK JL Cardinal 1 668551 5 4.0 5Fr Health catheter MULTIPACK Cardinal 1 543666 5 3DRC 5Fr Health catheter DIAGNOSTIC Cardinal 1 343969M 875078 145288 172170 15 AR MOD 5Fr Health Catheter (730869K) MULTIPACK Cardinal 1 098011 5 Pigtail 5 Fr Health catheter WHCHANG Peacock 2 [id number] 172772 663445 860322 5 300cm guide Vascular wire (2952121CQ) INFLATOR Merit 1 BQ4119 924696 418207 368067 15 [facility] Medical BasixCompak (AM5775) SHEATH 6FR Terumo 1 GJL426 450589 682552 639642 40 [place] (JFP038) GUIDE 6FR AR Medtronic 1 QI4IO35 847343 72267 820204 1 2.0 catheter (YU2YU39) EMERGE OTW Caribou 1 [id number] 562033 562997 481131 5 [id number] 3.0 x 15 Scientific balloon ([id number]) EXOSEAL 6Fr Cardinal 1 EX600 183795 216653 504991 10 (EX600) Health EMERGE OTW [place] 1 [id number] 148712 844955 652627 5 [id number] 1.5 x 15 Scientific balloon ([id number]) FEMSTOP Gold [facility] [place] 1 T05395 143637 774769 968953 5 (T42464) Signature Audit [place] Stage Time Signature Unsigned Intra-Procedure 11/02/2018 Marga Lawrence 2:59:02 PM RT(R) Signatures Monitor : Ward Acosta RT Signature : Date : Time : Monitor : Marga Lawrence Signature : RT Date : Time : [facility] [address] [place] [address]
[~2018-10-31 19:40] MED LIST: CATAPRES0.3 MG PO; HYDROCODONE-APA1 TAB PO; NEPHRO-VITE RX1 TAB PO; PLAVIX75 MG PO
[2018-10-31] MEDS ORDERED: NEURONTIN600 MG PO (21:39)
[2018-10-31] MEDS ORDERED: RENVELA800 MG PO (21:40)
[2018-10-31] MEDS ORDERED: HYDROCODON-ACE1 EA10 PO ×2 (21:41→21:43)
[2018-10-31] MEDS ORDERED: BAYER CHEWABLE81 MG PO (21:42)
[2018-10-31 21:43] VITALS: BP 167/97
[2018-10-31] MEDS ORDERED: MULTI-DAY VITAM1 TAB PO (21:44)
[2018-10-31] MEDS ORDERED: SENSIPAR30 MG PO (21:45)
[2018-10-31] MEDS ORDERED: RESTORIL15 MG PO (21:46)
[2018-10-31 22:37] LABS: CKMB 1.4 U/L (0.0-3.6); CREATINE KINASE 96 UL (21-232)
[2018-10-31 22:41] LABS: TROPONIN-I 0.208 ng/mL (0.000-0.060)
[2018-11-01 01:07] VITALS: BP 161/83
[2018-11-01 05:57] VITALS: BP 165/81
[2018-11-01 06:07] LABS: BASOPHILS 0.7 % (0-2); EOSINOPHILS 1.7 % (0-7); HEMATOCRIT 23.7 % (42.0-54.0); HEMOGLOBIN 7.8 g/dL (13.5-17.5); IMMATURE GRANULOCYTES 0.6 % (0-5); LYMPHOCYTES 22.9 % (15-50); MCH 27.4 pg (26.0-34.0); MCHC 32.9 g/dL (31.0-37.0); MCV 83.2 fL (80.0-100.0); MEAN PLATELET VOLUME 10.3 fL (7.4-10.4); NEUTROPHILS 62.1 % (40-80); RBC 2.85 10x6/uL (4.20-6.10); RDW 16.7 % (11.5-14.5); WBC 8.6 10x3/uL (4.8-10.8)
[2018-11-01 06:08] LABS: PLATELET COUNT 287 10x3/uL (130-400)
[2018-11-01 06:14] LABS: ALBUMIN 2.6 g/dL (3.4-5.0); ALKALINE PHOSPHATASE 112 U/L (46-116); ALT (SGPT) 17 U/L (10-68); BILIRUBIN - TOTAL 0.45 mg/dL (0.2-1.3); CALC OSMOLALITY 306 mosm/kg (275-300); CALCIUM 9.5 mg/dL (8.5-10.1); CARBON DIOXIDE 24.8 mmol/L (21.0-32.0); CHLORIDE - SERUM 101 mmol/L (98-107); CREATINE KINASE 98 UL (21-232); CREATININE - SERUM 10.9 mg/dL (0.6-1.3); GLUCOSE 107 mg/dL (74-106); POTASSIUM - SERUM 4.6 mmol/L (3.5-5.1); PROTEIN - SERUM 7.3 g/dL (6.4-8.2); SODIUM 143 mmol/L (136-145); UREA NITROGEN 74 mg/dL (7-18); eGFR NON AFRICAN AMERICAN 5 mL/min (90-120)
[2018-11-01 06:17] LABS: TROPONIN-I 0.205 ng/mL (0.000-0.060)
[2018-11-01 08:19] VITALS: BP 170/95
[2018-11-01 10:44] LABS: CKMB 1.6 U/L (0.0-3.6); CREATINE KINASE 131 UL (21-232)
[2018-11-01 10:48] LABS: TROPONIN-I 0.194 ng/mL (0.000-0.060)
[2018-11-01 12:12] VITALS: BMI 20.3
[2018-11-01 12:17] VITALS: BP 182/105
[2018-11-01 13:16] VITALS: Ht 182.9 cm; Wt 72.8 kg
[2018-11-02] VITALS (7 sets, daily range): BP systolic 132–153; BP diastolic 64–84
[2018-11-02 10:05] LABS: BASOPHILS 0.7 % (0-2); EOSINOPHILS 3.7 % (0-7); HEMATOCRIT 26.4 % (42.0-54.0); HEMOGLOBIN 8.7 g/dL (13.5-17.5); IMMATURE GRANULOCYTES 0.6 % (0-5); LYMPHOCYTES 21.3 % (15-50); MCH 27.6 pg (26.0-34.0); MCV 83.8 fL (80.0-100.0); MEAN PLATELET VOLUME 9.8 fL (7.4-10.4); MONOCYTES 9.5 % (2-11); NEUTROPHILS 64.2 % (40-80); PLATELET COUNT 236 10x3/uL (130-400); RBC 3.15 10x6/uL (4.20-6.10); RDW 17.3 % (11.5-14.5)
[2018-11-02 10:14] LABS: ANION GAP 14.6 mmol/L (8-16); CALCIUM 9.2 mg/dL (8.5-10.1); CARBON DIOXIDE 31.3 mmol/L (21.0-32.0); CREATININE - SERUM 8.9 mg/dL (0.6-1.3); POTASSIUM - SERUM 3.9 mmol/L (3.5-5.1)
[2018-11-03 00:30] VITALS: BP 120/63
[2018-11-03 05:29] VITALS: BP 110/58
[2018-11-03 07:53] VITALS: BP 124/64
[2018-11-03] MEDS ORDERED: PLAVIX75 MG PO (10:17)
[2018-11-03] MEDS ORDERED: PRAVASTATIN SOD10 MG PO (10:18)
--- NOTE | 2018-11-03 16:27 | MORECARE ---
CASE MANAGEMENT DISCHARGE SUMMARY PATIENT: SRIDHAR CONN UNIT: [id number] ADM DATE: 10/31/18 AGE: 68 : 50 SEX: M ROOM/BED: D.2109 AUTHOR: SANFORD MCBRIDE PHYSICIAN: REFERRING PHYSICIAN: CAMILA YEUNG MD DATE OF SERVICE: 11/03/18 Discharge Plan Patient Name: SRIDHAR CONN [facility] [facility] 1950 Planned Disposition: Home Anticipated Discharge Date: 11/03/18 Discharge Date: 11/03/2018 Expected LOS: 3 Initial Reviewer: [email or web address] Initial Review Date: 11/03/2018 Generated: 11/03/18 5:27 pm Coverage Notice Reviewer: [id number] - Yon Anders Notice Issued Date-Time: 11/03/2018 10:50 Notice Type: IM Discharge Notice Notice Delivered To: Patient Relationship to Patient: Investment Professional Name: Delivery Method: HAND - Hand Delivered Ning Days: Prior Verbal Notification: Recipient Understood Notice: Yes Recipient Signature: Yes Med Rec Note Co-signed by Attending: Coverage Notice Comment: Patient Name: SRIDHAR CONN Page 93181 at 1627 All edits/amendments must be made on the electronic document DICTATION DATE: 11/03/181625 GOVERNMENT MINISTER: WESLEY 11/03/181625 RPT#: [id number] DC DATE:11/03/18 STATUS: DIS IN [facility] [address] [place] [address] END OF REPORT
--- NOTE | 2018-11-03 16:46 | MORECARE ---
CASE MANAGEMENT DISCHARGE SUMMARY PATIENT: SRIDHAR CONN UNIT: [id number] ADM DATE: 10/31/18 AGE: 68 : 50 SEX: M ROOM/BED: D.2109 AUTHOR: SANFORD MCBRIDE PHYSICIAN: REFERRING PHYSICIAN: CAMILA YEUNG MD DATE OF SERVICE: 11/03/18 Discharge Plan Patient Name: SRIDHAR CONN Facility: [facility]:[place] : 1950 Planned Disposition: Home Anticipated Discharge Date: 11/03/18 Discharge Date: 11/03/2018 Expected LOS: 3 Initial Reviewer: [email or web address] Initial Review Date: 11/03/2018 Generated: 11/03/18 5:46 pm DCPIA - Discharge Planning Initial Assessment Updated by [email or web address]: Yon Anders on 11/03/18 4:43 pm * Is the patient Alert and Oriented? Yes * How many steps to enter\exit or inside your home? NONE * PCP [facility] * [facility] [place] * Preadmission Environment Home Alone * ADLs Independent * Equipment Oxygen * Other Equipment HOME OXYGEN - NOT USING UNKNOWN MEDICAL EQUIPMENT PROVIDER IN [place] * List name and contact numbers for known caregivers / representatives who currently or will assist patient after discharge: ANY BROTHER CONN, * Verbal permission to speak to the caregivers and representatives has been obtained from the patient. N/A * Community resources currently utilized Other * Please name any agencies selected above. OUTPATIENT DIALYSIS, [facility], [place], [facility], [address], [facility] * Can the patient safely return to the preadmission environment? Yes * Has this patient been hospitalized within the prior 30 days at any hospital? Yes Coverage Notice Reviewer: [id number] - Yon Anders Notice Issued Date-Time: 11/03/2018 10:50 Notice Type: IM Discharge Notice Notice Delivered To: Patient Relationship to Patient: Professor Of English Name: Delivery Method: HAND - Hand Delivered Nnig Days: Prior Verbal Notification: Recipient Understood Notice: Yes Recipient Signature: Yes Med Rec Note Co-signed by Attending: Coverage Notice Comment: Last DP export: 11/03/18 3:27 p Patient Name: SRIDHAR CONN Page [phone] at 1646 All edits/amendments must be made on the electronic document DICTATION DATE: 11/03/181645 AXMINSTER RUG SETTER: WESLEY 11/03/181645 RPT#: [id number] DC DATE:11/03/18 STATUS: DIS IN [facility] [address] [place] [address] END OF REPORT
--- NOTE | 2018-11-03 16:58 | MORECARE ---
CASE MANAGEMENT DISCHARGE SUMMARY PATIENT: SRIDHAR CONN UNIT: [id number] ADM DATE: 10/31/18 AGE: 68 : 50 SEX: M ROOM/BED: D.2105 AUTHOR: RAE,DOC PHYSICIAN: REFERRING PHYSICIAN: CAMILA YEUNG MD DATE OF SERVICE: 11/03/18 Discharge Plan Patient Name: SRIDHAR CONN Facility: [facility]:[place] : 1950 Planned Disposition: Home Anticipated Discharge Date: 11/03/18 Discharge Date: 11/03/2018 Expected LOS: 3 Initial Reviewer: [email or web address] Initial Review Date: 11/03/2018 Generated: 11/03/18 5:58 pm Comments DCP- Discharge Planning Updated by [email or web address]: Yon Anders on 11/03/18 3:[address] Patient Name: SRIDHAR CONN Admission Status: Elective Accout number: [id number] Admission Date: 10-31-2018 : 1950 Admission Diagnosis:SHORTNESS OF BREATH Attending: CAMILA YEUNG Current LOS: 3 Anticipated DC Date: 11-03-2018 Planned Disposition: Home Primary Insurance: MEDICARE A & B Discharge Planning Comments: CM MET WITH PT IN ROOM TO DISCUSS DISCHARGE PLANNING AND NEEDS. PT REPORTS LIVING AT HOME INDEPENDENTLY AND ALONE. PT HAS HOME OXYGEN THAT HE DOES NOT USE, HIS MEDICAL EQUIPMENT COMPANY IS UNKNOWN IN [place]. PT HAS NO OUTSIDE SERVICES ASSISTING IN THE HOME. PT GOES TO DIALYSIS IN [place] ON TTS 0600AM SCHEDULE, HIS BROTHER PROVIDES TRANSPORTATION. CM DISCUSSED AVAILABILITY OF HOME HEALTH, REHAB SERVICES AND MEDICAL EQUIPMENT. PT DENIES DISCHARGE NEEDS, REPORTS HIS DAUGHTER FROM [place] WILL PICK HIM UP FOR DISCHARGE HOME TODAY. IMPORTANT MESSAGE FROM MEDICARE PROVIDED AND EXPLAINED. RESOLUTION REP NURSE NOTIFIED. Alarm Investigator: Yon Anders DCPIA - Discharge Planning Initial Assessment Updated by [id number]: Yon Anders on 11/03/18 4:43 pm * Is the patient Alert and Oriented? Yes * How many steps to enter\exit or inside your home? NONE * PCP [facility] * Pharmacy [facility] [place] * Preadmission Environment Home Alone * ADLs Independent * Equipment Oxygen * Other Equipment HOME OXYGEN - NOT USING UNKNOWN MEDICAL EQUIPMENT PROVIDER IN [place] * List name and contact numbers for known caregivers / representatives who currently or will assist patient after discharge: ANY BROTHER CONN, * Verbal permission to speak to the caregivers and representatives has been obtained from the patient. N/A * Community resources currently utilized Other * Please name any agencies selected above. OUTPATIENT DIALYSIS, [facility], [place], TTS, [address]600, TRANSPORTS * Can the patient safely return to the preadmission environment? Yes * Has this patient been hospitalized within the prior 30 days at any hospital? Yes Coverage Notice Reviewer: [id number] Cristina Anders Notice Issued Date-Time: 11/03/2018 10:50 Notice Type: IM Discharge Notice Notice Delivered To: Patient Relationship to Patient: Morphologist Name: Delivery Method: HAND - Hand Delivered Ning Days: Prior Verbal Notification: Recipient Understood Notice: Yes Recipient Signature: Yes Med Rec Note Co-signed by Attending: Coverage Notice Comment: Last DP export: 11/03/18 3:46 p Patient Name: SRIDHAR CONN Page 50058 at 1658 All edits/amendments must be made on the electronic document DICTATION DATE: 11/03/181656 SERVICE MECHANIC: WESLEY 11/03/181656 RPT#: [id number] DC DATE:11/03/18 STATUS: DIS IN [facility] [address] [place] [address] END OF REPORT
== END 2018-11-03 15:49 | disposition home or self-care (01) | DRG 250 ==
LOC: D.M2 19:40
PROVIDERS: Internal Medicine Interventional Cardiology; ADMIT Internal Medicine Nephrology
PROC: 5A1D70Z Performance of Urinary Filtration, Intermittent, Less than 6 Hours Per Day (ICD-10-PCS; 2018-11-01)
PROC: B2111ZZ Fluoroscopy of Multiple Coronary Arteries using Low Osmolar Contrast (ICD-10-PCS; 2018-11-02)
PROC: B2151ZZ Fluoroscopy of Left Heart using Low Osmolar Contrast (ICD-10-PCS; 2018-11-02)
PROC: 02703ZZ Dilation of Coronary Artery, One Artery, Percutaneous Approach (ICD-10-PCS; principal; 2018-11-02 15:00)
PROC: 4A023N7 Measurement of Cardiac Sampling and Pressure, Left Heart, Percutaneous Approach (ICD-10-PCS; 2018-11-02 15:00)
DX: I25.10 Atherosclerotic heart disease of native coronary artery without angina pectoris (principal); N18.6 End stage renal disease; I13.2 Hypertensive heart and chronic kidney disease with heart failure and with stage 5 chronic kidney disease, or end stage renal disease; I50.9 Heart failure, unspecified; Z99.2 Dependence on renal dialysis; G89.29 Other chronic pain; D63.1 Anemia in chronic kidney disease; I71.4 Abdominal aortic aneurysm, without rupture; I73.9 Peripheral vascular disease, unspecified